=== PATIENT | female | born 1960 | race Caucasian/White ===

== ENCOUNTER → 2022-08-30 07:44 | Outpatient (CLI) | payer MEDICAID, SELFPAY ==
[2022-08-30 08:45] VITALS: PULSE 69; PULSE 74
== END ==
PROVIDERS: PCP Nurse Practitioner; Visit Provider Internal Medicine Pulmonary Disease
DX: R06.09 Other forms of dyspnea (principal)
CPT/HCPCS: 94060; 94618; 94640; 94727; 94729

== ENCOUNTER → 2022-08-31 13:31 | Outpatient (CLI) | payer MEDICAID, SELFPAY ==
[2022-09-05 18:09] LABS: Alpha-1-Antitrypsin 155 mg/dL (101-187)
== END ==
PROVIDERS: PCP Nurse Practitioner; Visit Provider Internal Medicine Pulmonary Disease
DX: R06.09 Other forms of dyspnea (principal)
CPT/HCPCS: 36415; 82103; 82104; 94618

== ENCOUNTER → 2022-10-02 10:07 | Outpatient (CLI) | payer MEDICAID, SELFPAY ==
--- NOTE | 2022-10-02 | CA_ITS ---
APPROVED REPORT Exam: Pharmacologic Technologist: Misty Spencer, Ht: 5 ft 4 in Wt: 109 lbs BSA: 1.51 m2 HR: 72 bpm BP: 99/52 mmHg Rhythm: NSR Medical History Medical History: Hyperlipidemia, Smoking Medications: Omeprazole,,,,, Levothyroxine,,,,, Aspirin,,,,, Atorvastatin,,,,, Citalopram,,,,, Albuterol,,,,, StIOLoto Respimat,,,,, Allergies: PENICILLINS Cardiac Risk Factors: Hyperlipidemia, FHX of CAD, Smoking Stress Test Details Test: LEXISCAN HR Resting HR: 71 bpm Max Heart Rate (APMHR): 160 bpm Max HR Achieved: 101 bpm Target HR (85% APMHR): 136 bpm % of APMHR: 63 Recovery HR: 90 bpm BP Resting BP: 99/52 mmHg Max BP: 107/51 mmHg Recovery BP: 103.0/52.0 mmHg ECG Resting ECG: NSR Stress ECG: New T-wave changes in the anterior leads Clinical Exercise duration: 04:00 min Highest Stage Achieved: Exercise capacity: n/a METs Stress ECG Conclusion PT EXPERIENCED DYSPNEA DURING TEST AT BASELINE, ECG DEMONSTRATES NORMAL SINUS RHYTHM WITH NON-SPECIFIC T-WAVE CHANGES IN THE ANTERIOR LEADS. FOLLOWING REGADENOSON, THE T-WAVE CHANGES IN THE ANTERIOR LEADS WERE MORE PRONOUNCED SUGGESTIVE OF POSSIBLE ISCHEMIC CHANGES WITH STRESS. Test Summary REST 04:47 . . 71 . 99/ 52 . . Stage 1 01:00 . . 91 . . . . Stage 2 01:00 . . 100 . . . . Stage 3 01:00 . . 100 . 107/ 51 . . Stage 4 01:00 . . 96 . . . Stop exercise at 04:00 RECOVERY 01:00 . . 96 . 96/ 42 . . RECOVERY 02:00 . . 93 . 96/ 42 . . RECOVERY 03:00 . . 93 . 102/ 52 . . RECOVERY 04:00 . . 91 . 102/ 52 . . RECOVERY 05:00 . . 91 . 102/ 44 . . RECOVERY 05:49 . . 92 . 103/ 52 . . Electronically signed by : Danika Wheeler, 10/02/2022 17:39:03
--- NOTE | 2022-10-02 10:07 | NM_ITS ---
APPROVED REPORT Exam: Nuclear Stress Test Indication: soa..fatigue Patient Location: Outpatient Stress Tech: Misty Spencer [place] Tech:Marielos Irving MARIAM RT(R)(N) Ht: 5 ft 4 in Wt: 109 lbs Bra Size: a HR: 72 bpm BP: 99/52 mmHg BSA: 1.51 m2 TID: 1.17 BMI: 18.7 History: soa..fatigue Procedure: Patient received 0.4 mg of intravenous Lexiscan, resting heart rate 72 bpm, resting blood pressure 99/52 mmHg, with Lexiscan maximum heart rate achieved was 100 bpm which is 85 % of the maximum predicted heart rate and blood pressure was 97/46 mmHg. With Lexiscan, patient denied any complaint of chest pain. Cardiac Stress and Resting SPECT Images: Cardiac Stress and Resting SPECT images were obtained using technetium 99m Myoview 30.9 mCi stress and 10.88 mCi at rest. The SPECT study is limited due to technical difficulty during study processing in the setting of significant motion, proximity of the bowels to the field of view with significant bowel uptake, and soft tissue attenuation. Grossly, the resting and supine stress images demonstrate a large, severe, fixed perfusion defect in the inferior and inferoseptal LV wall that is no longer visualized with prone stress imaging. These findings are suggestive of artifact due to diaphragmatic and/or soft tissue attenuation and due to high surrounding bowel count uptake, but mild perfusion defects in that region cannot be entirely excluded. Gated imaging demonstrates normal LV global and regional systolic function. LVEF is calculated at 61% Conclusion: The SPECT study is limited due to technical difficulty during study processing in the setting of significant motion, proximity of the bowels to the field of view with significant bowel uptake, and soft tissue attenuation. No definite evidence of fixed or reversible perfusion defects. Gated imaging demonstrates normal LV global and regional systolic function. LVEF is calculated at 61% Electronically signed by : Danika Wheeler, 10/02/2022 17:51:55
== END ==
PROVIDERS: PCP Nurse Practitioner; Visit Provider Nurse Practitioner Family
DX: R06.09 Other forms of dyspnea (principal); R07.89 Other chest pain; I25.10 Atherosclerotic heart disease of native coronary artery without angina pectoris; I25.84 Coronary atherosclerosis due to calcified coronary lesion; J43.9 Emphysema, unspecified; J44.9 Chronic obstructive pulmonary disease, unspecified; Z72.0 Tobacco use
CPT/HCPCS: 78452; 93017; A9502; J2785

== ENCOUNTER → 2022-10-25 13:59 | Outpatient (CLI) | payer MEDICAID, SELFPAY | PROVIDERS: PCP Nurse Practitioner; Visit Provider Nurse Practitioner Family | DX: R06.09 Other forms of dyspnea (principal); R07.89 Other chest pain; I25.10 Atherosclerotic heart disease of native coronary artery without angina pectoris; I25.84 Coronary atherosclerosis due to calcified coronary lesion; J43.9 Emphysema, unspecified; J44.9 Chronic obstructive pulmonary disease, unspecified; Z72.0 Tobacco use | CPT/HCPCS: 93306 ==

== ENCOUNTER → 2023-04-10 07:51 | Outpatient (CLI) | payer MEDICAID, SELFPAY ==
--- NOTE | 2023-04-10 07:51 | CT_ITS ---
FINAL REPORT CLINICAL HISTORY: . CURRENT SMOKER 1/2PPD X44 YEARS COMPARISON: None FINDINGS: CT CHEST LOW DOSE SCREENING HISTORY: Screening exam for lung cancer. 62-year-old female, Current smoker, 22 pack year smoking history DOSE: CTDIvol : 2.9 mGy, DLP: 100.81 mGy*cm COMPARISON: None . TECHNIQUE: Axial CT without IV contrast administration using low dose protocol FINDINGS: No acute lung disease is present . There are a few 5 mm or less left lower lobe nodules. There are several scattered calcified granulomas as well. Advanced changes of emphysema are identified. No pulmonary lesions are seen suspicious for neoplasm. No pleural or pericardial effusion is seen . No adenopathy or mass lesion is present . IMPRESSION: Few 5 mm or less in size left lower lobe nodules, likely secondary to granulomatous disease. LUNG RADS CATEGORY 2 RECOMMENDATION: 12 month LDCT follow up Reviewed, Interpreted and Dictated by Jamin Huynh MD Transcribed by Maria M Horowitz Authenticated and . [facility]
== END ==
PROVIDERS: PCP Nurse Practitioner; Visit Provider Internal Medicine Pulmonary Disease
DX: F17.210 Nicotine dependence, cigarettes, uncomplicated (principal)
CPT/HCPCS: 71271

== ENCOUNTER 2023-10-18 09:27 | Outpatient (CLI) | payer MEDICAID, SELFPAY ==
[2023-10-18] MEDS: ALBUTEROL 0.083% 2.5 MG/3 ML NEB IH (10:15)
--- NOTE | 2023-10-18 10:27 | XR_ITS ---
FINAL REPORT CLINICAL HISTORY: SOB FINDINGS: 2 views of the chest were obtained . The heart is normal in size. The mediastinum is within normal limits. The lungs are hyperinflated consistent with COPD. There is atelectasis/scarring at the lung bases.. There is no pneumothorax. Osseous structures are unremarkable. IMPRESSION: COPD with atelectasis/scarring at the lung bases. Reviewed, Interpreted and Dictated by Anirudh Nevarez III, MD Transcribed by Flor Ybarra Authenticated and [facility]
== END 2023-10-18 23:59 | disposition home or self-care (01) ==
LOC: RT 09:28
PROVIDERS: PCP Nurse Practitioner; Visit Provider Internal Medicine Pulmonary Disease
DX: R06.02 Shortness of breath (principal); J44.9 Chronic obstructive pulmonary disease, unspecified; Z72.0 Tobacco use
CPT/HCPCS: 71046; 94060; 94640

== ENCOUNTER 2023-11-06 13:34 | Outpatient (RCR) | payer MEDICAID, SELFPAY | END 2023-12-21 15:00 | disposition home or self-care (01) | LOC: PT 13:34 | PROVIDERS: Visit Provider Internal Medicine Pulmonary Disease | DX: R06.09 Other forms of dyspnea (principal); J44.9 Chronic obstructive pulmonary disease, unspecified ==

== ENCOUNTER → 2023-11-26 10:20 | Outpatient (CLI) | payer MEDICAID, SELFPAY | LOC: SL 10:22 | PROVIDERS: PCP Nurse Practitioner; Visit Provider Internal Medicine Pulmonary Disease | DX: J44.9 Chronic obstructive pulmonary disease, unspecified (principal) | CPT/HCPCS: 94762 ==

== ENCOUNTER 2024-02-14 15:24 | Outpatient (CLI) | payer MEDICARE, MEDICAID, SELFPAY ==
--- NOTE | 2024-02-14 15:31 | XR_ITS ---
FINAL REPORT TECHNIQUE: Chest PA & Lateral CLINICAL HISTORY: sob COMPARISON: 10/18/2023 FINDINGS: 2 views of the chest were performed. The heart size is normal. The mediastinum is within normal limits. The lungs are hyperinflated. Mild scarring is noted at the bases. No acute infiltrate is seen. There are no pleural effusions. There is no pneumothorax. The bony thorax appears intact. IMPRESSION: No acute cardiopulmonary process. Reviewed, Interpreted and Dictated by Jourdan Seymour MD Transcribed by Carol Feldman Authenticated and [facility]
== END 2024-02-14 23:59 | disposition home or self-care (01) ==
LOC: RAD 15:27
PROVIDERS: PCP Nurse Practitioner; Visit Provider Internal Medicine Pulmonary Disease
DX: R06.02 Shortness of breath (principal)
CPT/HCPCS: 71046

== ENCOUNTER 2024-04-14 10:51 | Outpatient (CLI) | payer MEDICARE, SELFPAY ==
--- NOTE | 2024-04-14 10:54 | CT_ITS ---
FINAL REPORT TECHNIQUE: Thin section axial images were obtained from the lung apices to the upper abdomen by computed tomography. Reformatted images were obtained and reviewed. This study was performed with techniques to keep radiation doses al low as reasonably achievable (ALARA). Individualized dose reduction techniques using automated exposure control or adjustment of mA and/or kV according to the patient's size were employed. CLINICAL HISTORY: lung cancer screening. CURRENT SMOKER. 1 PACK FOR 45 YEARS COMPARISON: 04/10/2023 FINDINGS: CHEST CT LOW DOSE 63-year-old female, current smoker, [id number] history. CTDI vol (mGy): 2.9 DLP (mGy-cm): 106.29 There is no axillary adenopathy. There is no mediastinal or hilar mass or adenopathy. The heart is normal in size. Severe coronary artery calcifications are present. There is a small calcification in the aortic valve as well. There is no pericardial or pleural effusion. There are severe changes of emphysema. Lung window images demonstrate a 5 mm nodule in the left lower lobe, best seen on image #54 of series 3, stable. There are also multiple small left lower lobe nodules less than 5 mm in size, also stable when compared to the prior exam. A calcified granuloma is noted in the right lung. Limited images of the upper abdomen demonstrate evidence of a prior cholecystectomy. IMPRESSION: Lung-RADS category 2S, the S designation for the severe coronary artery calcifications. Recommend 12 month follow up low dose chest CT. Reviewed, Interpreted and Dictated by Anirudh Nevarez III, MD Transcribed by Maria M Horowitz Authenticated and [facility]
== END 2024-04-14 23:59 | disposition home or self-care (01) ==
LOC: RAD 10:51
PROVIDERS: PCP Nurse Practitioner; Visit Provider Internal Medicine Pulmonary Disease
DX: F17.210 Nicotine dependence, cigarettes, uncomplicated (principal)
CPT/HCPCS: 71271

== ENCOUNTER 2024-05-15 10:39 | Emergency (ER) | payer MEDICARE, SELFPAY ==
[2024-05-15 10:40] VITALS: BP 137/71; PULSE 88; RESP 24; TEMP 36.6; O2SAT 94; BMI 19.9
--- NOTE | 2024-05-15 10:56 | PC.NURSE ---
DR SANDERS AT BEDSIDE
--- NOTE | 2024-05-15 10:58 | XR_ITS ---
FINAL REPORT CLINICAL HISTORY: Shortness of breath COMPARISON: 02/14/2024 FINDINGS: A portable view of the chest was obtained. Cardiac and mediastinal silhouettes are within normal limits. There is emphysema and evidence of prior granulomatous disease. The lungs are otherwise clear. There is no pleural effusion or pneumothorax. IMPRESSION: No acute process on this portable exam. Reviewed, Interpreted and Dictated by Martha Worthy MD Transcribed by Carol Feldman Authenticated and . [facility]
--- NOTE | 2024-05-15 10:59 | HMH.EDGENADL ---
Discharge Plan Disposition Patient Disposition: Home, Self-Care Prescriptions Prescriptions: New doxycycline hyclate 100 mg capsule 100 mg PO BID 10 Days Qty: 20 0RF prednisone 50 mg tablet 50 mg PO DAILY 5 Days Qty: 5 0RF Rx Instructions: Please begin 1 day after ED visit albuterol sulfate 90 mcg/actuation HFA aerosol inhaler 4 inh inhalation Q4H PRN (Reason: shortness of breath or wheezing) Qty: 8.5 0RF Rx Instructions: 4 puffs every 4 hours for 48 hours then as needed for shortness of breath or wheezing following cyclobenzaprine 5 mg tablet 5 mg PO TID PRN (Reason: muscle spasm) 5 Days Qty: 15 0RF No Action ipratropium-albuterol 0.5 mg-3 mg(2.5 mg base)/3 mL solution for nebulization 3 ml inhalation QID PRN (Reason: shortness of breath or wheezing) 90 Days Qty: 270 2RF benzonatate 200 mg capsule 200 mg PO BID PRN (Reason: cough) Qty: 30 0RF atorvastatin 40 mg tablet 40 mg PO DAILY aspirin [Adult Low Dose Aspirin] 81 mg tablet,delayed release (DR/EC) 81 mg PO DAILY albuterol sulfate 90 mcg/actuation HFA aerosol inhaler 2 inh inhalation QID PRN (Reason: shortness of breath or wheezing) 90 Days Qty: 8.5 2RF levothyroxine 88 mcg tablet 88 mcg PO DAILY Patient Comments: TAKE ONE TABLET BY MOUTH EVERY DAY omeprazole 40 mg capsule,delayed release(DR/EC) 40 mg PO DAILY Patient Comments: TAKE ONE CAPSULE BY MOUTH EVERY DAY citalopram 40 mg tablet 40 mg PO DAILY Patient Comments: TAKE ONE TABLET BY MOUTH EVERY DAY Breztri Aerosphere 160-9-4.8 mcg/actuation HFA aerosol inhaler See Rx Instructions .ROUTE .COMPLEX Qty: 10.7 3RF Dose Instruction: INHALE TWO PUFFS BY MOUTH TWICE DAILY Rx Instructions: INHALE TWO PUFFS BY MOUTH TWICE DAILY Referrals Follow up/Referrals: Yisel Figueroa APRN [Primary Care Provider] - See instructions Activity Restrictions/Add. Instructions Additional Instructions/Restrictions: No evidence of an acute cardiopulmonary emergency aside from an acute exacerbation of your COPD. Regarding her left arm and shoulder and chest discomfort likely secondary to your COPD however no evidence of any acute vascular emergency soft tissue or orthopedic emergency. Please return with any significant worsening of your symptoms. If you continue to have chronic left shoulder pain please follow-up with an orthopedic surgeon. Regarding her breathing please return with a significant worsening of your symptoms. Clinical Impressions Clinical Impression: Acute exacerbation of chronic obstructive pulmonary disease, Arm pain, left Print Language Print Language: Honduran Discharge ED Provider: Sarah Mario General Adult HPI General Chief complaint: Shortness of Breath/Dyspnea Stated complaint: body aches, lung pain Time Seen by Provider: 05/15/24 10:52 Mode of Arrival: Wheelchair Source of Information: Patient Limitations: No Limitations Description of Symptoms (Recalled from ER Triage Doc. by RN): short of air x 2 days. COPD. current smoker. left arm and back pain. History of Present Illness HPI narrative: 63-year-old the history of COPD on 2 L of home oxygen presents today with increasing cough shortness of breath wheezing and superior lateral chest discomfort that is radiating into her arm on the left side. No fevers or chills that she is aware of. Both shortness of breath and the arm/shoulder thoracic discomfort is what brought her to the emergency department today. Related Data Home Medications ?Medication ?Instructions ?Recorded ?Confirmed aspirin 81 mg tablet,delayed 81 mg PO DAILY 06/29/22 04/21/24 release (Adult Low Dose Aspirin) atorvastatin 40 mg tablet 40 mg PO DAILY 06/29/22 04/21/24 citalopram 40 mg tablet 40 mg PO DAILY 04/21/24 04/21/24 levothyroxine 88 mcg tablet 88 mcg PO DAILY 04/21/24 04/21/24 omeprazole 40 mg capsule,delayed 40 mg PO DAILY 04/21/24 04/21/24 release Previous Rx's ?Medication ?Instructions ?Recorded albuterol sulfate 90 mcg/actuation 2 inh inhalation QID PRN shortness 06/29/22 aerosol inhaler of breath or wheezing 90 days #8.5 grams ipratropium 0.5 mg-albuterol 3 mg 3 ml inhalation QID PRN shortness 10/18/23 (2.5 mg base)/3 mL nebulization of breath or wheezing 90 days #270 soln mL benzonatate 200 mg capsule 200 mg PO BID PRN cough #30 caps 02/14/24 budesonide 160 mcg-glycopyr 9 See Rx Instructions .Route 02/26/24 mcg-formot 4.8 mcg/actuation HFA .COMPLEX #10.7 grams inhaler (Breztri Aerosphere) albuterol sulfate 90 mcg/actuation 4 inh inhalation Q4H PRN shortness 05/15/24 aerosol inhaler of breath or wheezing #8.5 grams cyclobenzaprine 5 mg tablet 5 mg PO TID PRN muscle spasm 5 05/15/24 days #15 tabs doxycycline hyclate 100 mg capsule 100 mg PO BID 10 days #20 caps 05/15/24 prednisone 50 mg tablet 50 mg PO DAILY 5 days #5 tabs 05/15/24 Allergies Allergy/AdvReac Type Severity Reaction Status Date / Time Penicillins Allergy Mild Swelling Verified 04/21/24 14:41 of Lip/Tongue/Throat [facility] Disclaimer: The information contained in this section may have been updated after the patient was seen, as this information can be updated by other users. Medical History Panic attack COPD exacerbation Hyperlipidemia Atypical chest pain Coronary artery calcification Tobacco abuse counseling Tobacco abuse Multiple lung nodules on CT Dyspnea Pulmonary emphysema COPD mixed type Surgical History No history of previous surgery Family History Other Asthma COPD (chronic obstructive pulmonary disease) Diabetes Hypertension Social History Smoking Status: Current every day smoker alcohol intake: never current occupational status: unemployed Travel in the last 8 weeks: None Have you lived/traveled outside [place] in past 30 days?: No Contact w/someone who lives/traveled outside US past 30 days?: No Exposure to someone with infectious disease in past 14 days?: No Do you have a fever (greater than 100.4 F or 38 C)?: No Have you tested positive for COVID-19: No Exposed to someone with COVID-19 in past 14 days?: No Do you have a sore throat?: No Do you have a cough?: No Do you have any weakness?: No Do you have any diarrhea?: No Are you experiencing any unusual bleeding?: No Do you have any muscle aches/pain?: Yes Do you have any abdominal pain?: No Are you experiencing loss of taste or smell?: No Other Medical History Have you received the Pneumonia Vaccine: Yes ROS Obtained: Yes All systems reviewed & no additional complaints except as documented Physical Exam General General appearance: alert and in no apparent distress Respiratory Respiratory exam: Present other (Patient very tight and mild respiratory distress prolonged expiratory phase speaking in fragmented sentences with pursed lip breathing accessory muscle use oxygen saturations in the low 90s on her 2 L) Cardiovascular Cardiovascular exam: Present regular rate and normal rhythm Neurological Exam Neurological exam: Present oriented X3 Medical Decision Making Medical Records Screening: Per USPSTF and CDC recommendations, given the prevalence of disease in our region, it is our hospital?s policy to screen for HIV and viral Hepatitis for all patients aged 18 and over and those with ongoing risk factors. Beau Inquiry Pt receiving controlled substance: No Vital Signs: 05/15/24 10:40 05/15/24 11:26 05/15/24 11:30 Temperature 97.9 F Temperature Source Oral Pulse Rate 89 83 Pulse Rate [Right] 88 Respiratory Rate 24 Blood Pressure 115/62 123/61 Blood Pressure [Right Arm] 137/71 Blood Pressure Mean [Right Arm] 93 02 Sat by Pulse Oximetry 94 L 98 98 Oxygen Delivery Method Nasal Cannula Oxygen Flow Rate (LPM) 2 05/15/24 12:00 05/15/24 12:30 Temperature Temperature Source Pulse Rate 88 94 H Pulse Rate [Right] Respiratory Rate Blood Pressure 124/75 114/72 Blood Pressure [Right Arm] Blood Pressure Mean [Right Arm] 02 Sat by Pulse Oximetry 98 95 Oxygen Delivery Method Nasal Cannula Oxygen Flow Rate (LPM) Lab Data Lab Results 05/15/24 10:54: WBC 6.6, RBC 4.87, Hgb 14.1, Hct 41.8, MCV 85.8, MCH 29.0, MCHC 33.7, RDW 11.6, Plt Count 280, MPV 9.6, Neut % (Auto) 62.8, Lymph % (Auto) 29.3, [place] % (Auto) 5.6, Eos % (Auto) 1.4, Baso % (Auto) 0.6, Neut # (Auto) 4.2, Lymph # (Auto) 1.9, [place] # (Auto) 0.4, Eos # (Auto) 0.1, Baso # (Auto) 0.0, D-Dimer 0.54 H, Sodium 141, Potassium 4.4, Chloride 101, Carbon Dioxide 35 H, Anion Gap 9.4, BUN 11, Creatinine 0.90, Estimated Creat Clear 49, Estimated GFR 64, Est GFR ( Amer) 77, Glucose 94, Calcium 9.5, Total Bilirubin 0.5, AST 33, ALT 23, Alkaline Phosphatase 81, Troponin I < 0.01, NT-Pro-B Natriuret Pep 68.6, Total Protein 7.2, Albumin 4.6, Globulin 2.6, Albumin/Globulin Ratio 1.8, SARS-CoV-2 (PCR) Not detected, Influenza A Untype (PCR) Not detected, Influenza Type B (PCR) Not detected 05/15/24 11:04: VBG pH 7.30 L, VBG pCO2 58.3 H, VBG pO2 25.2 L, VBG HCO3 27.7, VBG Total CO2 29.5 H, VBG O2 Saturation 48.3 L, VBG Base Excess 1.2, VBG Lactic Acid 2.1 H 05/15/24 10:54 05/15/24 10:54 Orders (Tests/Meds): ED MEDICATIONS Discontinued Medications Generic Name Dose Route Start Last Admin Trade Name Freq PRN Reason Stop Dose Admin Albuterol/Ipratropium 3 ml 05/15/24 10:57 05/15/24 11:32 Ipratropium/Albuterol 3 Ml Neb IH 05/15/24 10:58 3 ml ONCE ONE Administration Sodium Chloride 1,000 mls @ 999 mls/hr 05/15/24 11:00 05/15/24 11:33 Sod Chlor 0.9% 1000ml Bag IV 05/15/24 12:00 999 mls/hr .Q1H1M SPIKE Administration Magnesium Sulfate 2 gm in 50 mls @ 50 mls/hr 05/15/24 10:57 05/15/24 11:33 Magnesium Sulfate 2gm/50ml Premix IV 05/15/24 11:56 50 mls/hr ONCE ONE Administration Ketorolac Tromethamine 15 mg 05/15/24 10:57 05/15/24 11:33 Ketorolac 30mg/Ml Vial IV 05/15/24 10:58 15 mg ONCE ONE Administration Methylprednisolone Sodium Succinate 125 mg 05/15/24 10:57 05/15/24 11:33 Methylprednisolone Sod Succ 125mg Vial IV 05/15/24 10:58 125 mg ONCE ONE Administration ORDERS Category Date Time Status CXR --portable [XR chest portable] Stat Exams 05/15/24 10:58 Taken BNP [NT Pro Brain Natriuretic Pep.] Stat Lab 05/15/24 10:54 Completed CBC w/Auto Diff [Complete Blood Count Auto Diff] Stat Lab 05/15/24 10:54 Completed CMP [Comprehensive Metabolic Panel] Stat Lab 05/15/24 10:54 Completed D-Dimer Stat Lab 05/15/24 10:54 Completed HIV Combo Stat Lab 05/15/24 10:42 Received Hep C Ab with Reflex to RNA Stat Lab 05/15/24 10:42 Received Lactate Venous Stat Lab 05/15/24 10:57 Ordered Rapid PCR Covid and Flu A/B Stat Lab 05/15/24 10:54 Completed Trop I [Troponin I] Stat Lab 05/15/24 10:54 Completed Troponin I Q3H Lab 05/15/24 14:00 Ordered Troponin I Q3H Lab 05/15/24 17:00 Ordered Blood Culture Stat Micro 05/15/24 11:05 Received Venous Blood Gas Stat RT 05/15/24 11:04 Completed Medical Decision Narrative: 63-year-old female with above history and physical presents today with dyspnea and evidence of a COPD exacerbation with increased shortness of breath cough wheezing etc. She has significant left thoracic pain and arm pain making me concerned about a peripheral inflammatory process such as malignancy pneumonia pulmonary embolism etc. this workup has been initiated. In addition to COPD medications including neb steroids magnesium Toradol has been administered will reassess shortly. Chest x-ray returned which I personally interpreted which shows no evidence of acute cardiopulmonary emergency. D-dimer less than 1.0 utilizing years criteria this makes pulmonary bliss and exceedingly unlikely. No evidence of a peripheral malignancy or pneumonia. On reassessment patient from respiratory standpoint is much improved and states that she is at her baseline. She still is having left upper extremity pain however on serial assessments peripheral pulses are normal no evidence of any soft tissue swelling erythema soft tissue deformities etc. EKG was unremarkable and troponin negative has been having symptoms for several days this is not consistent with referred pain from acute coronary syndrome or acute arterial ischemia. Likely musculoskeletal in nature and possibly rated to her COPD. She has been advised if she continues to have chronic pain in that shoulder or arm to follow-up with orthopedic surgery for an MRI. She was discharged in improved and stable condition with symptomatic medications. Critical Care Critical Care Time Critical Care Time: Yes Attestation: On , the high probability of a clinically significant, sudden or life threatening deterioration of the following system(s) required my full and direct attention, intervention and personal management. The time I documented below is in addition to time spent performing reported procedures but includes the following listed in this critical care notation. Total Time Total Critical Care Time: 35
[2024-05-15 11:06] LABS: VBG Base Excess 1.2 mmol/L (-2.4-2.3); VBG HCO3 27.7 mmol/L (23-30); VBG Oxygen Saturation 48.3 % (50-70); VBG PO2 25.2 mmol/L (28-40); VBG Total CO2 29.5 mmol/L (23-27)
--- NOTE | 2024-05-15 11:07 | ECG_ITS ---
APPROVED REPORT Exam: Resting ECG HR:86 bpm ECG Measurements Heart Rate 86 AXES AL 126 P 71 QRSd 74 QRS 47 QT 309 T 56 QTc 352 Conclusion SINUS RHYTHM NONSPECIFIC T-WAVE ABNORMALITY BORDERLINE ECG UNCONFIRMED REPORT Electronically signed by : Judd Mario, 05/15/2024 15:34:18
[2024-05-15 11:13] LABS: Coronavirus 19, PCR Not Detected (NotDetected); Influenza A, PCR Not Detected (NotDetected); Influenza B, PCR Not Detected (NotDetected)
[2024-05-15 11:13] LABS: Lactate Venous 2.1 mmol/L (0.4-2.0); VBG PCO2 58.3 mmol/L (35-51)
[2024-05-15 11:17] LABS: Basophils % 0.6 % (0.1-2.0); Eosinophils # 0.1 K/mm3 (0.0-0.4); Eosinophils % 1.4 % (0.1-12.0); Hematocrit 41.8 % (37.0-47.0); Hemoglobin 14.1 g/dL (12.2-16.2); Lymphocytes # 1.9 K/mm3 (0.7-4.5); Lymphocytes % 29.3 % (10-50); Mean Corpuscular HGB Conc 33.7 g/dL (31.8-35.4); Mean Corpuscular Volume 85.8 fl (81-99); Mean Platelet Volume 9.6 fl (7.4-10.4); Monocytes # 0.4 K/mm3 (0.1-1.0); Monocytes % 5.6 % (1.7-9.3); Neutrophils # 4.2 K/mm3 (1.8-7.8); Neutrophils % 62.8 % (37.0-80.0); Platelet Count 280 K/mm3 (142-424); Red Blood Count 4.87 M/mm3 (4.20-5.40); Red Cell Distribution Width 11.6 % (11.5-17.5); White Blood Count 6.6 K/mm3 (4.8-10.8)
[2024-05-15 11:24] LABS: Alanine Aminotransferase 23 U/L (12-78); Albumin Level 4.6 g/dl (3.5-5.0); Albumin/Globulin Ratio 1.8 (1.1-1.8); Alkaline Phosphatase 81 U/L (38-126); Aspartate Amino Transferase 33 U/L (14-36); Bilirubin,Total 0.5 mg/dl (0.2-1.3); Blood Urea Nitrogen 11 mg/dl (7-17); Calcium 9.5 mg/dl (8.4-10.2); Carbon Dioxide 35 mmol/L (22.0-30.0); Chloride 101 mmol/L (98-107); Creatinine Clearance Estimated 49 mL/min (50-200); Estimated Glomerular Filt Rate 64 ml/min (>60); GFR (African American) 77 ML/MIN (>60); Globulin 2.6 g/dL (1.3-3.2); Glucose 94 mg/dl (74-100); Sodium 141 mmol/L (136-145); Total Protein,Serum 7.2 g/dl (6.3-8.2)
[2024-05-15 11:26] VITALS: BP 115/62; PULSE 89; O2SAT 98
[2024-05-15 11:27] LABS: D-Dimer 0.54 ug/mL (0.0-0.5)
[2024-05-15 11:30] VITALS: BP 123/61; PULSE 83; O2SAT 98
[2024-05-15] MEDS: IPRATROPIUM/ALBUTEROL 3 ML NEB IH (11:32)
[2024-05-15] MEDS: KETOROLAC 30MG/ML VIAL 15 MG IV (11:33)
[2024-05-15] MEDS: METHYLPREDNISOLONE SOD SUCC 125MG VIAL 125 MG IV (11:33)
[2024-05-15] MEDS: MAGNESIUM SULFATE IN WATER 2 GM/50 ML PIGGYBACK IV (11:33)
[2024-05-15] MEDS: 0.9 % SODIUM CHLORIDE 1000ML 1,000 ML 999 ML IV (11:33)
[2024-05-15 11:36] LABS: NT Pro Brain Natriuretic Pep. 68.6 pg/mL (0-125)
[2024-05-15 11:37] LABS: Troponin I < 0.01 ng/ml (0.00-0.034)
[2024-05-15 11:40] LABS: Anion Gap 9.4 mEq/L (5-15); Potassium 4.4 mmoL/L (3.5-5.1)
[2024-05-15 12:00] VITALS: BP 124/75; PULSE 88; O2SAT 98
[2024-05-15 12:30] VITALS: BP 114/72; PULSE 94; O2SAT 95
[2024-05-15 13:32] VITALS: BP 127/65; PULSE 82; RESP 18; TEMP 36.8; O2SAT 97
[2024-05-15 13:38] LABS: HIV Combo NEGATIVE (Negative)
[2024-05-15 15:13] LABS: Reflex Lactic Add Lactic Reflex
[2024-05-16 05:53] LABS: HCV Ab Non Reactive (Non Reactive)
== END 2024-05-15 13:39 | disposition home or self-care (01) ==
PROVIDERS: Emergency Provider Student in an Organized Health Care Education/Training Program; PCP Nurse Practitioner
DX: J44.1 Chronic obstructive pulmonary disease with (acute) exacerbation (principal); R06.02 Shortness of breath; M54.9 Dorsalgia, unspecified; M79.602 Pain in left arm; R05.9 Cough, unspecified; R07.89 Other chest pain; R06.2 Wheezing
CPT/HCPCS: 71045; 80053; 82803; 83880; 84484; 85025; 85378; 86803; 87040; 87389; 87636; 93005; 96361; 96365; 96374; 96375; 99284; 99291; J1885; J2919; J3475; J7030; J7620

== ENCOUNTER 2024-07-29 12:55 | Outpatient (CLI) | payer MEDICARE, SELFPAY ==
--- NOTE | 2024-07-29 13:01 | XR_ITS ---
FINAL REPORT CLINICAL HISTORY: Left Hand Pain FINDINGS: LEFT HAND Three views demonstrate no acute fracture or dislocation. The visualized joint spaces are normally aligned. There are degenerative changes of the first carpometacarpal joint and interphalangeal joints. Bones are osteopenic. The soft tissues are unremarkable. IMPRESSION: No acute process. Reviewed, Interpreted and Dictated by Jamin Huynh MD Transcribed by Flor Ybarra Authenticated and [facility]
--- NOTE | 2024-07-29 13:01 | XR_ITS ---
FINAL REPORT CLINICAL HISTORY: Left elbow pain FINDINGS: 3 views of the elbow were obtained. There is no acute fracture or dislocation. The joint spaces are intact. There is not soft tissue abnormality. IMPRESSION: No acute fracture Reviewed, Interpreted and Dictated by Jamin Huynh MD Transcribed by Flor Ybarra Authenticated and [facility]
--- NOTE | 2024-07-29 13:01 | XR_ITS ---
FINAL REPORT CLINICAL HISTORY: Left Shoulder Pain FINDINGS: LEFT SHOULDER 2 views of the left shoulder were obtained. There is no acute fracture or dislocation. Visualized joint spaces are normally aligned. Mild degenerative changes are noted. Soft tissues are unremarkable. IMPRESSION: No acute bony abnormality. Reviewed, Interpreted and Dictated by Jamin Huynh MD Transcribed by Flor Ybarra Authenticated and [facility]
--- NOTE | 2024-07-29 13:01 | XR_ITS ---
FINAL REPORT CLINICAL HISTORY: Left Wrist pain FINDINGS: LEFT WRIST THREE VIEW FINDINGS: Three views show no evidence of an acute, displaced fracture or dislocation of the visualized bony architecture. The joint spaces appear normal. IMPRESSION: Unremarkable exam. Reviewed, Interpreted and Dictated by Jamin Huynh MD Transcribed by Flor Ybarra Authenticated and [facility]
== END 2024-07-29 23:59 | disposition home or self-care (01) ==
LOC: RAD 12:56
PROVIDERS: PCP Nurse Practitioner; Visit Provider Physician Assistant
DX: M79.642 Pain in left hand (principal); M79.602 Pain in left arm; M25.512 Pain in left shoulder; M25.522 Pain in left elbow; M25.532 Pain in left wrist
CPT/HCPCS: 73030; 73080; 73110; 73130

== ENCOUNTER 2024-10-23 09:22 | Outpatient (CLI) | payer MEDICARE, MEDICAID, SELFPAY ==
--- OUTSIDE RECORDS SUMMARY | 2024-09-01 05:55 | XMS_ITS | Continuity of Care Document ---
Author Organization [facility] Phone Care Team Providers Care Finisher Tailor Apprentice Name Role Phone ANNABELLE AKINS Primary Attending ANNABELLE AKINS Admitting ANNABELLE AKINS Unavailable SNEHA RAMIREZ Primary Care ALLERGIES AND ADVERSE REACTIONS ALLERGIES AND ADVERSE REACTIONS Code System Allergy Substance Adverse Reaction Date Reaction (Severity) Comment Status Reported By Updated By PCN (Free Text Allergy) Anaphylaxis due to substance (Severe) active [id number] on February 19, 2024 11:55:07 PM [facility] RESULTS Patient: JAUN PABLO MOORE Date of : July 26 3 8 LABORATORY RESULTS Information is not available LABORATORY NARRATIVE RESULTS Information is not available RADIOLOGY RESULTS ORDER 100: BOB SCREEN MAMMO W CAD BILAT (LOINC: 88207-3) ORDER DATE: August 28, 2024 6:44:00 PM [facility] PERFORMING LAB: [address] [id number] Final Result Date: August 28, 2024 7:01:[address] [place] [address] Name: RORY ALMEIDA Exam Date: 08/28/2024 : 1960 Age 64 years Gender: F Physician: ANNABELLE AKINS Facility: [facility] Facility HSV: Outpatient Exam: BOB SCREEN MAMMO W CAD BILAT Exam: 3-D screening mammography including tomosynthesis and CAD (Computer Assisted Detection). Clinical indication: Asymptomatic screening exam Comparison: Exams to 2016 TECHNIQUE: Routine bilateral 2D screening mammogram with CC and MLO views obtained. 3-D tomosynthesis and Computer assisted detection were utilized for this exam. BREAST DENSITY: The breasts are heterogeneously dense, which may obscure small masses FINDINGS: No suspicious mass, architectural distortion, or suspicious calcifications are present. IMPRESSION: No evidence of malignancy in either breast Recommendation: Annual screening mammography recommended in one year The results of this report will be communicated to the patient by letter in layman's terms. ACR BI-RADS: BI-RADS assessment category 1: Negative mammogram Mammography does not detect approximately 10-15% of breast cancers. A normal mammogram does not exclude breast cancer in a patient with palpable mass or abnormal findings on physical examination. These patients may need biopsies and when clinically indicated a biopsy should not be postponed because of a normal mammogram. If the patient has breast surgery or biopsy, FDA/SA Regulatory Guidelines mandate that this facility receive pathologic results for follow-up correlation. Electronically signed by: Bert Woo MD 08/28/2024 03:07 PM EDT Dictated By: Bert Woo Transcribed By: Transcribed On: 08/28/2024 3:01 PM Electronically signed by: Bert Woo 08/28/2024 Thank you for referring RORY ALMEIDA to [facility]. Legally authenticated by ADELFO PAULINO MD 2024-08-28 15:01:00 PATHOLOGY NARRATIVE RESULTS Information is not available MICROBIOLOGY RESULTS No Micro Labs/Results Exist for Patient BLOOD ADMIN RESULTS Information is not available MEDICATIONS HOME MEDICATIONS Status RXNORM NDC Medication Dose Route Frequency Dates Comments Reported By Updated By Drug Treatment Unknown DISCHARGE MEDICATIONS Status RXNORM NDC Medication Dose Route Frequency Dates Comments Physician Updated By No Discharge Medication Info rmation Available INPATIENT MEDICATIONS Status RXNORM NDC Medication Dose Route Frequency Rat e Quantity Dates Comments Physician Updated By No Inpatient Medication Info rmation Available SOCIAL HISTORY SOCIAL HISTORY SNOMED-CT Social History Element Description Effective Dates Offered Cessation Comment UpdatedBy [id number] Smoking Status Unknown If Ever Smoked SOCIAL HISTORY - Gender Sex: Female SOCIAL HISTORY - Status : status i nformation is not available Intention in Next Year: intention information is not available SOCIAL HISTORY - Sexual Behavior Sexual Orientation Gender Identity SNOMED-CT Description SNO MED -CT Description Activity Level No of Partners Partner Type UpdatedBy Information is not available HEALTH CONCERNS Problems Concern Status Health Concern problem infor mation not available. Smoking Status Status Years Used Consumed packs p er day Health Concern smoking histo ry information not available. Family History Concern Status Health Concern family histor y information not available. ENCOUNTERS ENCOUNTER INFORMATION Reason for Visit Not Specified Admission August 28, 2024 5:30:00 PM [facility] [address] [facility] [address] Discharge August 29, 2024 5:30:00 AM [facility] DI SCHARGED TO HOME OR SELF CARE ENCOUNTER DIAGNOSES Notes information is not madai ilable. Code System Diagnosis Onset Date Diagnosis information is not available. ABSTRACT DIAGNOSES Code System Diagnosis Updated By Z12.31 ICD10 ENCOUNTER FOR SC REENING MAMMOGRAM FOR MALIGNANT NEOPLASM OF BREAST [id number] on August 25, 2024 3:34:26 PM [facility] Z12.31 ICD10 ENCOUNTER FOR SC REENING MAMMOGRAM FOR MALIGNANT NEOPLASM OF BREAST [id number] on September 01, 2024 9:55:29 AM [facility] CARE TEAM Care Finisher Tailor Apprentice Role ANNABELLE AKINS Primary Attending ANNABELLE AKINS Admitting ANNABELLE AKINS Referring SNEHA RAMIREZ Primary Care CARE TEAM CARE cardiology technician Role on Team Status Start Date End Date Update d By ASHLEY MORRISON UNDERWRITING CLERKS SUPERVISOR PCP normal August 25, 2024 3:34:27 PM [facility] August 29, 2024 5:30:00 AM [facility] [id number] on August 25, 2024 3:34:27 PM [facility] MABLE ALANIS CNM Referring normal August 25 3:34:27 PM [facility] August 29, 2024 5:30:00 AM [facility] [id number] on August 25, 2024 3:34:27 PM [facility] MABLE ALANIS CNSylvester Attending normal August 25 3:34:26 PM [facility] August 29, 2024 5:30:00 AM [facility] [id number] on August 25, 2024 3:34:27 PM [facility] MABLE ALANIS CNM Admitting normal August 25 3:34:26 PM [facility] August 29, 2024 5:30:00 AM [facility] [id number] on August 25, 2024 3:34:27 PM [facility]
--- OUTSIDE RECORDS SUMMARY | 2024-10-18 17:30 | XMS_ITS ---
Author Organization [facility] Address [address] [place] [address] Care Team Providers Care Fats And Oils Loader Name Role Phone Migration, Provider Unavailable Unavailable Allergies Allergen (clinical drug ingredient) Drug/Non Drug Allergy documented on EMR Reaction Allergy Type Onset Date Status Penicillin hives Drug Allergy Active [facility] Encounter Medications Medication SIG (Take, Route, Frequency, Duration) Notes Start Date End Date Status Vitamin D3 50 MCG 1 TAB(S) ORALLY ONCE A DAY for 30 DAY(S) *Please review and pick correct strength-formulatio n from [employer] options. If intended option is not shown, discontinue and re-order from Quick Search* Active Citalopram Hydrobromide 40 MG 1 tab(s) orally once a day for 30 days Active Lovastatin 20 MG 1 tab(s) orally once a day (at bedtime) for 90 days Active Incruse Ellipta 62.5 MCG (0.0625 MG)/INH 1 PUFF INHALED EVERY 24 HOURS for 90 DAYS *Please review and pick correct strength-formulatio n from [employer]span options. If intended option is not shown, discontinue and re-order from Quick Search* Active Levothyroxine Sodium 75 MCG 1 tab(s) orally once a day for 30 day(s) Active Omeprazole 20 MG TAKE 1 CAPSULE BY MOUTH DAILY for 90 days Active Encounters Encounter Location Date Provider Diagnosis [facility] [address] [place] [address] 10/18/2024 Provider Migration Mixed hyperlipidemia E78.2 Assessments Encounter Date Diagnosis (ICD Code) Assessment Notes Treatment Notes Treatment Clinical Notes Section Notes 10/18/2024 Mixed hyperlipidemia (ICD-10 - E78.2) Plan Of Treatment Medication Medication Name Sig Start Date Stop Date Notes Vitamin D3 50 MCG 1 TAB(S) ORALLY ONCE A DAY for 30 DAY(S) *Please review and pick correct strength-formulation from [employer]span options. If intended option is not shown, discontinue and re-order from Quick Search* Citalopram Hydrobromide 40 MG 1 tab(s) orally once a day for 30 days Lovastatin 20 MG 1 tab(s) orally once a day (at bedtime) for 90 days Omeprazole 20 MG TAKE 1 CAPSULE BY MOUTH DAILY for 90 days Progress Notes * Efrain ALMEIDAOB: [birth year] (64 yo F)Acc No.[id number]:10/18/2024 Patient: Aydee SANTIAGO Provider: :1960 A ge:64 Y S ex:Female Date:10/18/2024 Address:[address] [place] [address] Subjective: * Chief Complaints: * [facility] . [facility] * Medical History: * Medications: T aking Incruse Ellipta 62.5 MCG (0.0625 MG)/INH POWDER 1 PUFF INHALED EVERY 24 HOURS , Notes to Pharmacist: *Please review and pick correct strength-formulation from [employer]span options. If intended option is not shown, discontinue and re-order from Quick Search*, Taking Levothyroxine Sodium 75 MCG Tablet 1 tab(s) orally once a day * Allergies: P enicillin: hives - Allergy. Objective: * Vitals: Assessment: * Assessment: 1. M ixed hyperlipidemia - E78.2 Plan: * Treatment: 2. O thers Start Citalopram Hydrobromide Tablet, 40 MG, 1 tab(s), orally, once a day, 30 days, 30 Tablet, Refills 6; S tart Vitamin D3 TABLET, 50 MCG, 1 TAB(S), ORALLY, ONCE A DAY, 30 DAY(S), 30, Refills 2, Notes to Pharmacist: *Please review and pick correct strength-formulation from [employer]span options. If intended option is not shown, discontinue and re-order from Quick Search*; S tart Omeprazole Capsule Delayed Release, 20 MG, TAKE 1 CAPSULE BY MOUTH DAILY, 90 days, 90, Refills 1. * * Electronic signature of Prov ider Migration on 10/23/2024 at 09:35 AM EDT Sign off status: Pending * Provider: Date: 0 10/18/2024 Generated for Miriam gonzales/Adrian/Dameonitting on: 0 10/23/2024 09:35 AM EDT
--- OUTSIDE RECORDS SUMMARY | 2024-10-23 09:35 | XMS_ITS | Referral Summary ---
Author Organization [facility] Address [address] [place] [address] Care Team Providers Care Teachers Aide Name Role Phone HenryYisel Lynne ANGEL Primary Care Provider [phone] Allergies Active Allergy Reactions Criticality Noted Date Comments Penicillins 05/30/2022 Medications albuterol HFA (VENTOLIN HFA) 90 mcg/actuation inhaler Inhale 2 puffs by mouth via inhaler every 4 (four) hours as needed. Active citalopram (CeleXA) 40 MG tablet Take 40 mg by mouth daily . Active umeclidinium (INCRUSE ELLIPTA) 62.5 mcg/actuation DsDv powder for inhalation Inhale 62.5 mcg by mouth via inhaler daily. Active levothyroxine (SYNTHROID, LEVOTHROID) 75 MCG tablet Take 75 mcg by mouth Every morning on an empty stomach. Active omeprazole (PriLOSEC) 20 MG capsule Take 20 mg by mouth daily. Active aspirin 81 MG EC tablet Take 81 mg by mouth daily. Active Active Problems Problem Noted Date Diagnosed Date Calcification of coronary artery COPD (chronic obstructive pulmonary disease) GERD (gastroesophageal reflux disease) Hypothyroidism Lung disease Pulmonary emphysema Social History Tobacco Use Types Packs/Day Years Used Date Smoking Tobacco: Every Day Smokeless Tobacco: Never Alcohol Use Standard Drinks/Week Comments Never 0 (1 standard drink = 0.6 oz pur e alcohol) caffeine use Interpersonal Safety Answer Date Record ed Family or friends hurt you Not on file 06/01 Family or friends insult you Not on file Family or friends threaten you Not on file 0 06/01/2023 Family or friends scream or curse at you Not on file 06/01/2023 Housing Stability Answer Date Recorded Living situation today Not on file Living situation problems Not on file 2023 Food Insecurity Answer Date Recorded Food run out past 12 months Not on file 05/14 Food did not last past 12 months Not on file 06/01/2023 Employment Answer Date Recorded Help finding and keeping a job Not on file 0 06/01/2023 Family and Community Support Answer Didier e Recorded Help with Day to Day Activities Not on file 06/01/2023 Feeling Lonely or Isolated Not on file 06/01 Educational Attainment Answer Date Peter rded Speak language other than [place] Zealander at home Not on file 06/01/2023 Want help with school or training Not on file 06/01/2023 Depression Answer Date Recorded PHQ-2 Risk Not on file 06/01/2023 Disabilities Answer Date Recorded Difficulty concentrating Not on file 024 Difficulty doing errands alone Not on file 0 06/01/2023 Substance Use Answer Date Recorded Used prescription meds for non-medical reasons N ot on file 06/01/2023 Used illegal drugs past 12 months Not on file 06/01/2023 Comments Unknown Sex and Gender Information Value Date Recorded Sex Assigned at Not on file Legal Sex Female 6:46 PM CDT Gender Identity Not on file Sexual Orientation Not on file Last Filed Vital Signs Vital Sign Reading Time Taken Comments Blood Pressure 132/70 06/01/2022 11:40 AM EST Pulse 80 06/01/2022 11:40 AM EST Temperature - - Respiratory Rate 18 06/01/2022 11:40 AM EST Oxygen Saturation 98% 06/01/2022 11:40 AM EST Inhaled Oxygen Concentration - - Weight 45.8 kg (101 lb) 06/01/2022 11:40 AM EST Height 162.6 cm (5' 4 ) 06/01/2022 11:40 AM EST Body Mass Index 17.34 06/01/2022 11:40 AM EST Plan of Treatment Not on file Insurance Care Teams Teachers Aide Relationship Specialty Start Date End Date Yisel Figueroa, CEPHALOMETRIC ANALYST [address] [address] PCP - General Family Medicine 04/12/22
--- OUTSIDE RECORDS SUMMARY | 2024-10-23 09:35 | XMS_ITS | Clinical Summary ---
Author Organization [facility] Address [address] [place] [address] Care Team Providers Care Table Runner Name Role Phone HenryYisel Lynne ANGEL Primary Care Provider [phone]- [phone] Allergies Active Allergy Reactions Criticality Noted Date [...] reflux disease) Hypothyroidism Lung disease Pulmonary emphysema Family History Medical History Relation Name Comments Heart disease Father Hypertension Father Lung cancer Father Heart disease Mother Hypertension Mother Lung cancer Mother Relation Name Status Comments Father Mother Social History Tobacco Use Types Packs/Day Years [...] Date Peter rded Speak language other than Welsh at home Not on file 06/01/2023 Want [...] 06/01/2022 11:40 AM EST Plan of Treatment Health Maintenance Due Date Last Done Comments CT Colonography 1960 Colonoscopy 1960 Colorectal Cancer Screening 1960 FOBT/FIT 1960 Fit-DNA (Cologuard) 1960 Sigmoidoscopy 1960 Depression Screening (12+) 1974 HIV Screening 1977 Hepatitis C Screening 1980 DTAP/TDAP/TD VACCINES (1 - Tdap) 1981 Pneumococcal 50+ years (1 of 2 - PCV) 1981 Pap Smear 07/27/1983 Breast Cancer Screening 2002 Lipid Panel 07/27/2007 Shingles Vaccine (Zoster) (1 of 2) 2012 Respiratory Syncytial Virus (RSV) Adult or (1 - Risk 60-74 years 1-dose series) 2022 Tobacco Cessation Counseling and Screening (12+) 06/01/2023 06/01/2022 COVID-19 VACCINE ( season) 2024 03/31/2021, 06/17/2020, 05/20/2020 Influenza Vaccine (Season Ended) 2025 Insurance Care Teams Table Runner Relationship Specialty Start Date End Date Yisel Figueroa, DIRECTOR OF LABOR AND DELIVERY [address] [facility] [address] [place] [address] PCP - General Family Medicine 04/12/22
--- OUTSIDE RECORDS SUMMARY | 2024-10-23 09:35 | XMS_ITS | Patient Health Record ---
Author Organization [facility] Address [address] [place] [address] Care Team Providers Care Associate Professor Of Library Media Name Role Phone Elsa Franco Primary Care Provider Unavailabl e Allergies Allergen (clinical drug ingredient) Drug/Non Drug Allergy documented on EMR Reaction Allergy Type Onset Date Status Penicillin anaphylaxis Drug Allergy Acti ve Reason For Referral No Information Medications Medication SIG (Take, Route, Frequency, Duration) Notes Start Date End Date Status Pravastatin Sodium on for years 10 mg po QD *Please review and pick correct strength-formulatio n from [employer] options. If intended option is not shown, discontinue and re-order from Quick Search* Active Symbicort 250mg/ every 12 hours. *Please review and pick correct strength-formulatio n from [employer] options. If intended option is not shown, discontinue and re-order from Quick Search* Active Levothyroxine Sodium on for year s *Please review and pick correct strength-formulatio n from [employer] options. If intended option is not shown, discontinue and re-order from Quick Search* Active Ventolin HFA *Please review a nd pick correct strength-formulatio n from [employer] options. If intended option is not shown, discontinue and re-order from Quick Search* Active Nystatin 755973 UNIT/ML 4 mL orally 4 times a day for 10 days Active Social History Alcohol Misuse/Abuse (Audit C): Question Answer Notes Did you have a drink containing alcohol in the p ast year? No Points: 0 Interpretation: Negative Problems Problem Type SNOMED Code ICD Code Onset Dates Problem Status W/U Status Risk Notes Problem Smoker (F17.200) Active confirmed Problem Chronic obstructive pulmonary disease with acute lower respiratory infection (J44.0) Active confirmed Plan Of Treatment No Information Insurance Providers Payer Name Payer Address Payer Phone Subscriber Number Group Number Insured Name Patient Relationship to Insured Coverage Start Date Coverage End Date PROMPT PAY/Bill to Patient [id number] [place] RORY [place] Self - patient is the insured Medical (General) History Medical History History ICD Code COPD Hypothyroidism Hyperlipidemia Surgical History Surgery Date(Month/Year) Trigger finger release right hand 2014 CSections X4 1981,1983,1984,1986 Hospitalization History Reason Date(Month/Year) see above
--- OUTSIDE RECORDS SUMMARY | 2024-10-23 09:36 | XMS_ITS | Patient Health Record ---
Author Organization [facility] Address [address] [place] [address] Care Team Providers Care Baseball Umpire For Little League Name Role Phone Migration, Provider Unavailable Unavailable Allergies Allergen (clinical drug ingredient) Drug/Non Drug Allergy documented on EMR Reaction Allergy Type Onset Date Status Penicillin hives Drug Allergy Active Reason For Referral No Information Medications Medication SIG (Take, Route, Frequency, Duration) Notes Start Date End Date Status Vitamin D3 50 MCG 1 TAB(S) ORALLY ONCE A DAY for 30 DAY(S) *Please review and pick correct strength-formulatio n from [employer] options. If intended option is not shown, [...] review and pick correct strength-formulatio n from [employer] options. 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) Active confirmed Problem Tobacco user (540421033) Nicotine dependence, unspecified, uncomplicated (F17.200) Active confirmed Problem Chronic obstructive pulmonary disease (78967697) Chronic obstructive pulmonary disease, unspecified (J44.9) Active confirmed Problem Gastro-esophageal reflux disease without esophagitis (488236660) Gastro-esophageal reflux disease without esophagitis (K21.9) Active confirmed Problem Dysphagia (81398649) Dysphagia, unspecified (R13.10) Active confirmed Problem Seasonal allergic rhinitis (257679334) Other seasonal allergic rhinitis (J30.2) Active confirmed Problem Mixed hyperlipidemia (875731825) Mixed hyperlipidemia (E78.2) Active confirmed Problem Generalized anxiety disorder (25873624) Generalized anxiety disorder (F41.1) Active confirmed Problem Mild recurrent major depression (29763990) Major depressive disorder, recurrent, mild (F33.0) Active confirmed Encounters Encounter Location Date Provider Diagnosis [address] [address] 10/18/2024 Provider Migration Mixed hyperlipidemia E78.2 Assessments Encounter Date Diagnosis (ICD Code) Assessment Notes Treatment Notes Treatment Clinical Notes Section Notes 10/18/2024 Mixed hyperlipidemia (ICD-10 - E78.2) Plan Of Treatment Pending Test Test Name Order Date CBC (INCLUDES DIFF/PLT) 02/07/2022 LIPID PANEL 02/07/2022 COMPREHENSIVE METABOLIC PANEL W/EGFR TSH, 3RD GENERATION W/REFLEX TO FT4 01/13 THYROID STIM HORMONE (REF) 02/23/2021 Insurance Providers Payer Name Payer Address Payer Phone Subscriber Number Group Number Insured Name Patient Relationship to Insured Coverage Start Date Coverage End Date [employer] Attn Claims Department [address] [address] [place] [address] [id number] Aydee Banuelos Self - patient is the insured Medical (General) History Surgical History Surgery Date(Month/Year) x4 Tubal ligation
[2024-10-23] MEDS: ALBUTEROL 0.083% 2.5 MG/3 ML NEB IH (11:05)
== END 2024-10-23 23:59 | disposition home or self-care (01) ==
LOC: RT 09:22
PROVIDERS: PCP Nurse Practitioner; Visit Provider Internal Medicine Pulmonary Disease
DX: J44.9 Chronic obstructive pulmonary disease, unspecified (principal); R94.2 Abnormal results of pulmonary function studies
CPT/HCPCS: 94010; 94618